=== PATIENT | male | born 1970 | race Caucasian/White ===

== ENCOUNTER 2021-02-25 09:16 | Outpatient (CLI) | payer OTHER, SELFPAY ==
--- NOTE | ~2021-02-25 | XR_ITS ---
XR chest 2V DATE: 02/25/2021 09:42 INDICATION: Cough TECHNIQUE: PA and lateral views COMPARISON: None FINDINGS: Normal heart size. No hilar or mediastinal enlargement. No pulmonary infiltrate or consolid ation, pleural effusion or pulmonary vascular congestion or pneumothorax. IMPRESSION: No active cardiopulmonary disease Reviewed, dictated and finalized at location B.
--- NOTE | ~2021-02-25 | XR_ITS ---
EXAMINATION: XR cervical spine 4-5V EXAM DATE: 02/25/2021 09:43 INDICATION: Cervical pain posteriorly. TECHNIQUE: Cervical spine frontal, lateral, lateral swimmers, and open-mouth odontoid projections. There is no prior study for comparison. FINDINGS: There is mild mid cervical disc disease and mild to moderate cervical facet and mid cervic al uncovertebral joint arthropathy. Mild cervicothoracic levoscoliosis. The vertebral bodies are alig derrick in the AP dimension. Vertebral body heights are maintained. Prevertebral soft tissue and pre-dens space are within normal limits. The odontoid process is intact. The lateral masses of C1 line up wi th C2. Lung apices are unremarkable. IMPRESSION: Mild to moderate cervical spondylosis. Mild cervicothoracic levoscoliosis. Reviewed, dictated and finalized at location A. IMPRESSION: Mild to moderate cervical spondylosis. Mild cervicothoracic levosc oliosis.
== END 2021-02-25 09:17 | disposition home or self-care (01) ==
PROVIDERS: PCP Physician Assistant; Visit Provider Physician Assistant
DX: M54.2 Cervicalgia (principal); R05 Cough; M47.812 Spondylosis without myelopathy or radiculopathy, cervical region; M41.82 Other forms of scoliosis, cervical region
CPT/HCPCS: 71046; 72050